=== PATIENT | female | born 1950 | race Two or more races ===

== ENCOUNTER 2023-04-26 11:25 | Emergency (ER) | payer OTHER ==
[~2023-04-26] VITALS: Ht 152.4 cm; Wt 54.0 kg
[2023-04-26] MEDS ORDERED: NEURONTIN300 MG PO (11:41)
[2023-04-26] MEDS ORDERED: CELEXA10 MG PO (11:42)
== END 2023-04-26 13:44 | disposition home or self-care (01) ==
LOC: ER 11:25
DX: S60.221A Contusion of right hand, initial encounter (principal); W18.39XA Other fall on same level, initial encounter; Y93.89 Activity, other specified; Y92.012 Bathroom of single-family (private) house as the place of occurrence of the external cause; Y99.9 Unspecified external cause status; M12.541 Traumatic arthropathy, right hand

== ENCOUNTER 2023-08-04 21:57 | Emergency (ER) | payer OTHER ==
[~2023-08-04] VITALS: Ht 157.5 cm; Wt 56.7 kg
[~2023-08-04 21:57] MED LIST: CELEXA10 MG PO; NEURONTIN300 MG PO
[2023-08-04 23:05] LABS: ABG PH 7.483 (7.35-7.45); ABG pCO2 32.1 mmHg (35-45); BASE EXCESS 0.9 mmol/l; SaO2 95.9 %
[2023-08-04 23:06] LABS: BICARBONATE 23.5 mmol/l (23-25); Tco2 24.5 mmol/l; allen test SATISFACTORY; o2 21 %; puncture site RADIAL LEFT
[2023-08-04 23:12] LABS: HEMATOCRIT 36.1 % (36.0-45.00); HEMOGLOBIN 12.1 g/dL (12.0-15.00); MEAN CELL VOLUME 87.2 fL (80.00-100.00); MEAN CORPUSCULAR HEMOGLOBIN 29.1 pg (27.00-32.0); MEAN CORPUSCULAR HGB CONC 33.4 g/dl (32.0-36.0); PLATELET COUNT 257 K/uL (150-450); RED BLOOD COUNT 4.14 M/uL (4.00-6.00); RED CELL DISTRIBUTION WIDTH 13.8 % (11.5-14.5)
[2023-08-04] MEDS ORDERED: TUSSIN DM LIQU118 ML PO (23:54)
[2023-08-04] MEDS ORDERED: MEDROLPACK PO (23:54)
[2023-08-04] MEDS ORDERED: LEVOFLOXACIN750 MG PO (23:54)
== END 2023-08-05 00:14 ==
LOC: ER 21:57
PROVIDERS: Nurse Practitioner Family
DX: J06.9 Acute upper respiratory infection, unspecified (principal); F78.A9 Other genetic related intellectual disability; Z20.822 Contact with and (suspected) exposure to COVID-19
CPT/HCPCS: 36415; 71046; 82803; 94640; 96365; 99285; J2930